=== PATIENT | female | born 1970 | race Hispanic/Latino ===

== ENCOUNTER → 2025-03-10 | Outpatient (CLI) | payer OTHER ==
[~2025-03-10] MED LIST: GADOTERATE MEGLUMINE 10 MMOL/20 ML VIAL IV ONE
--- NOTE | 2025-03-16 13:09 | HMCIMG ---
INDICATION: High risk screening TECHNIQUE Precontrast axial T1 and axial T2 fat saturation sequences were obtained. Dynamic postcontrast axial imaging were obtained. Subtraction images and MIP reconstructions were generated. COMPARISON Mammogram 04/15/2024 FINDINGS Amount of fibroglandular tissue: Heterogeneous fibroglandular tissue. Background parenchymal enhancement: Minimal. Right breast: No suspicious mass or non-mass enhancement. Left breast: No suspicious mass or non-mass enhancement. Lymph nodes: Unremarkable. Other tissues: Unremarkable. IMPRESSION No MRI evidence of malignancy. BI-RADS 1: negative. Recommendation: Continued imaging surveillance per high risk clinical protocol. /[place]
== END | disposition home or self-care (01) ==
LOC: RAH 12:27
PROVIDERS: ATTEND Student in an Organized Health Care Education/Training Program
DX: R92.333 Mammographic heterogeneous density, bilateral breasts (principal); R92.323 Mammographic fibroglandular density, bilateral breasts
CPT/HCPCS: C8908; A9575; 77049

== ENCOUNTER → 2025-04-16 | Outpatient (CLI) | payer OTHER ==
[~2025-04-16] MED LIST changes: -GADOTERATE MEGLUMINE 10 MMOL/20 ML VIAL IV ONE; +IOHEXOL 350 MG/ML 100ML INFUS..BTL IV ONE
--- NOTE | 2025-04-16 10:29 | HMCIMG ---
EXAM: CTA examination of the chest CLINICAL HISTORY: Thoracic aortic aneurysm. Anemia. TECHNIQUE: Pre and post-contrast thin collimated axial CTA images of the chest were obtained, with sagittal and coronal reformatted images also submitted. CT scan is done according to ALARA (As Low as Reasonably Achievable). COMPARISON: None provided. FINDINGS: The lungs are clear. No acute infiltrate, effusion, pneumothorax, or mass. No pericardial effusion. The cardiac size is within normal limits. Calcific atherosclerotic disease in the thoracic aorta and its branches. There is a patent stent graft in the thoracic aorta from the aortic arch to the distal descending thoracic aorta, no graft endoleak or complications. The aortic diameters measure 3 cm at the sinus of Valsalva, 3.1 cm at the aortic root, 3.1 cm at the ascending thoracic aorta, 2.6 cm at the mid aortic arch, 3.4 cm at the distal aortic arch, 3.3 cm at the proximal descending thoracic aorta, 3.4 cm at the mid descending thoracic aorta, 3.3 cm at the distal descending thoracic aorta, 2.3 cm at the proximal abdominal aorta, and 3.0 cm at the infrarenal abdominal aorta. Partially visualized abdominal aortic dissection with false lumen on the right side, thrombosed false lumen is evident up to the suprarenal segment; contrast enhancement is present within the false lumen at the infrarenal segment. No mediastinal, axillary, or supraclavicular lymphadenopathy. Mild fatty liver. No acute bony abnormality is evident. Degenerative osseous changes. IMPRESSION: Partially visualized abdominal aortic dissection with false lumen on the right side, thrombosed false lumen is evident up to the suprarenal segment; contrast enhancement is present within the false lumen at the infrarenal segment. Recommend a dedicated CTA abdomen and pelvis for an optimal evaluation. Aortic arch to descending thoracic aortic aneurysm with a patent stent graft within, no graft endoleak or complications around the segment. The lungs are clear. /[place]
== END | disposition home or self-care (01) ==
LOC: RAH 08:32
PROVIDERS: ATTEND Internal Medicine Cardiovascular Disease
DX: I71.23 Aneurysm of the descending thoracic aorta, without rupture (principal); I71.02 Dissection of abdominal aorta; K76.0 Fatty (change of) liver, not elsewhere classified; I71.20 Thoracic aortic aneurysm, without rupture, unspecified; I73.9 Peripheral vascular disease, unspecified; D64.9 Anemia, unspecified
CPT/HCPCS: 71275; Q9967